=== PATIENT | female | born 1970 | race Hispanic/Latino ===

== ENCOUNTER 2020-05-29 10:19 | Outpatient (CLI) | payer OTHER | END 2020-05-29 10:20 | disposition home or self-care (01) | LOC: CSHCT 10:19 | PROVIDERS: ATTEND Family Medicine | DX: R51.9 Headache, unspecified (principal); H53.8 Other visual disturbances | CPT/HCPCS: 70450 ==

== ENCOUNTER 2020-07-02 09:10 | Outpatient (CLI) | payer OTHER | END 2020-07-02 09:11 | disposition home or self-care (01) | LOC: CSHULT 09:10 | PROVIDERS: ATTEND Internal Medicine Gastroenterology | DX: K21.9 Gastro-esophageal reflux disease without esophagitis (principal); K59.00 Constipation, unspecified; R14.0 Abdominal distension (gaseous); B96.81 Helicobacter pylori [H. pylori] as the cause of diseases classified elsewhere | CPT/HCPCS: 76705 ==